=== PATIENT | male | born 1945 | race Caucasian/White ===

== ENCOUNTER 2018-02-13 17:16 | Observation (INO) | payer MEDICARE ==
[2018-02-13] MEDS ORDERED: Nitroglycerin 2% Ointment 1 INCH/1 GM Packet ONE (17:52)
[2018-02-13 17:56] LABS: #Lymphocytes 0.7 thou/uL (1.20-3.40); #Monocytes 0.5 thou/uL (0.11-0.59); #Neutrophils 6.8 thou/uL (1.40-6.50); %Basophils 0.6 % (0.0-1.0); %Eosinophils 0.2 % (0.0-10.0); %Lymphocytes 8.3 % (21.0-51.0); %Monocytes 6.1 % (0.0-10.0); %Neutrophils 84.8 % (42.0-75.0); Hemoglobin 15.6 g/dL (14.0-18.0); Mean Corpuscular HGB CONC 33.8 g/dL (32.0-36.0); Mean Corpuscular Hemoglobin 28.3 pg (27.0-31.0); Mean Corpuscular Volume 83.6 fL (78.0-98.0); Mean Platelet Volume 8.6 fL (7.4-10.4); Platelet Count 181 thou/uL (130-400); Red Blood Cell (RBC) Count 5.52 mill/uL (4.70-6.10)
[2018-02-13 18:17] LABS: CO2 Tension 38.7 mmHg (35.0-45.0); pH, Arterial 7.42 (7.35-7.45)
[2018-02-13 18:17] LABS: ALT (SGPT) 38 U/L (8-55); AST (SGOT) 38 U/L (5-34); Albumin 4.4 g/dL (3.4-4.8); Alkaline Phosphatase 69 U/L (40-150); Anion Gap 15 mmol/L (10-20); BUN (Urea Nitrogen) 23 mg/dL (8.4-25.7); Bilirubin, Total 0.6 mg/dL (0.2-1.2); CK (CPK) 102 U/L (30-200); Calc. Creatinine Clearance 0 mL/min (70-130); Calcium 9.5 mg/dL (7.8-10.44); Carbon Dioxide 26 mmol/L (23-31); Chloride 102 mmol/L (98-107); Estimated GFR-MDRD 54; Globulin 3.4 g/dL (2.4-3.5); Glucose 191 mg/dL (83-110); Lipase 23 U/L (8-78); Potassium 4.6 mmol/L (3.5-5.1); Protein, Total 7.8 g/dL (5.8-8.1); Sodium 138 mmol/L (136-145)
[2018-02-13 18:18] LABS: Actual Bicarbonate (HCO3a) 24.4 mEq/L (22-28); Base Excess (BEa) 0.1 mEq/L (-2.0 to +3.0); Hematocrit-ABG 47.6 % (42.0-52.0); Hemoglobin (Hb) 14.7 g/dL (14.0-18.0); O2 Tension (PaO2) 69.9 mmHg (> 70.0)
[2018-02-13 18:19] LABS: ALV-art Gradient 79.965 (0-20); Analyzer IN Cardio ER; Calcium, Ionized 1.2 mmol/L (1.12-1.30); Puncture Site LBA
[2018-02-13 18:21] LABS: CKMB 1.1 ng/mL (0-6.6); Troponin I 0.015 ng/mL (< 0.028)
--- NOTE | 2018-02-13 18:32 | RAD ---
PORTABLE CHEST: 02/13/18 INDICATIONS: Dyspnea. Comparison made to a prior exam from 2008. 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 There appears to be right bas ilar atelectasis. The left lung is clear. heart and mediastinum unremarkable. 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 No acute process identified. POS: [facility]
[2018-02-13] MEDS ORDERED: Enoxaparin Sodium 40 MG/0.4 ML SYRINGE ONE (18:58)
[2018-02-13] MEDS ORDERED: Enoxaparin Sodium 100 MG/ML SYRINGE ONE (18:58)
[2018-02-13 19:44] LABS: Bilirubin Negative (Negative); Blood, Urine Negative (Negative); Clarity CLEAR (Clear); Glucose, Urine (Dipstick) 500 mg/dL (Negative); Leukocyte Negative (Negative); Nitrite Negative (Negative); Protein, Urine (Dipstick) Negative (Neg-Trace); Specific Gravity, Urine 1.026 (1.002-1.036); pH, Urine 6.5 (5.0-9.0)
[2018-02-13] MEDS ORDERED: Ondansetron ODT 4 MG TAB SL PRN (20:27)
[2018-02-13] MEDS ORDERED: Sodium Chloride 0.9% 1,000 ML IV SCH (20:27)
[2018-02-13] MEDS ORDERED: Ondansetron HCl/PF 4 MG/2 ML Vial IVP PRN (20:27)
[2018-02-13 20:35] VITALS: BMI 36.6
[2018-02-13] MEDS ORDERED: Aspirin 325 MG TAB PO SCH (21:00)
[2018-02-13] MEDS ORDERED: Atorvastatin Calcium 10 MG TAB PO SCH (22:15)
[2018-02-13] MEDS: traMADol HCl 50 MG TAB PO PRN (22:18)
[2018-02-13] MEDS: Sodium Chloride 0.9% 1,000 ML IV SCH (22:24)
[2018-02-14 00:11] LABS: Troponin I Less than 0.010 ng/mL (< 0.028)
[2018-02-14] MEDS ORDERED: Diclofenac Sodium 25 mg Tablet PO SCH ×2 (08:00→20:45)
--- NOTE | 2018-02-14 08:58 | HP ---
ADMITTING PHYSICIAN: Ambrosio Mandujano M.D. HISTORY OF PRESENT ILLNESS: The patient is a 72-year-old male. 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 He reports over the last 3-4 days he is having some worsening shortness of breath. He also had some left-sided chest pain. He states that he was at a 13 of February event at his worship. He noted worsening shortness of breath, difficulty breathing. He noted pain t o his left shoulder. No nausea, vomiting, diarrhea, no productive coughing, no fever. It became inc reasingly further shortness of breath, reported to the emergency room where he was seen and evaluated . He was found to be somewhat hypoxic with O2 sat of 89%. He was given supplemental oxygen. He was seen and evaluated in the emergency room. It is noted he had a previous history of a cardiac workup by Dr. Elizalde one year ago with chemical stress test for preoperative evaluation for knee surgery . Otherwise, no other medical complaints. Right now reports he is resting comfortably. He has no hist ory of leg pain. No history of deep vein thrombosis or previous pulmonary emboli. As a matter of fa ct, he does have a previous history of a head injury causing intracranial bleed approximately 3 years ago. No further treatment was noted other than close observation. At this time he currently report s he is feeling well, but he is taking supplemental oxygen. ALLERGIES: He is possibly allergic to IODINE. He has had a cardiac catheterization in the past but was premedicated. CURRENT MEDICATIONS: Pravastatin 40 mg daily, Nexium 40 mg daily, aspirin 81 mg daily, tramadol as n eeded for pain, Zyrtec 10 mg daily. PAST MEDICAL HISTORY: Positive for paralysis of right hemidiaphragm, hypertension. PAST SURGICAL HISTORY: Positive for surgery on the left wrist, right total knee replacement approxim ately 1 year ago. SOCIAL/PERSONAL HISTORY: He lives at home with his . He drinks socially, does not smoke. REVIEW OF SYSTEMS: GASTROINTESTINAL: Negative. GENITOURINARY: Negative. CARDIOVASCULAR: Otherwise, negative. PHYSICAL EXAMINATION: VITAL SIGNS: BP 118/55, temperature 98.8, respirations 18, O2 sats 99% on 2 liters, pulse 66 and reg ular. HEENT: Normocephalic, atraumatic. Extraocular muscles intact. Sclerae and conjunctivae are clear. Throat clear. NECK: Supple, full range of motion, no masses. LUNGS: Reveal bilateral breath sounds, somewhat diminished on the right side. HEART: Regular rate and rhythm without murmurs, gallops or rubs. EXTREMITIES: No clubbing, edema or cyanosis noted at this time. ABDOMEN: Soft, nontender, bowel sounds present and active. LABORATORY: Hemoglobin 15.6, hematocrit 46.2. WBC is 8.0. D-dimer is elevated slightly at 1.05. B lood gases show a pO2 of 69%, pO2 of 38.7. Chemistry is otherwise unremarkable. Troponins are negat sean x3. EKG reveals sinus rhythm without acute changes. Chest x-ray does reveal no evidence of acute findings. IMPRESSION: Elevated D-dimer in association with shortness of breath with association of left-sided chest pain, suspicious for possible embolism. PLAN: 1. We will go ahead and schedule VQ scan as well as venous Doppler studies of extremities. 2. We will consult Pulmonary for further recommendations of evaluation and treatment. For the time being, he will remain on Lovenox until further treatment recommendations are made.
[2018-02-14] MEDS ORDERED: Enoxaparin Sodium 40 MG/0.4 ML SYRINGE SC SCH (09:00)
[2018-02-14] MEDS: Cetirizine HCl 10 MG TAB PO SCH (09:23)
--- NOTE | 2018-02-14 10:18 | ULT ---
VENOUS DUPLEX SONOGRAM BILATERAL LOWER EXTREMITIES: History: Dyspnea, bilateral leg pain and edema. FINDINGS: Each common femoral vein and greater saphenous junction are evaluated along with each femoral, deep f emoral, popliteal, and posterior tibial vein. There is good color and spectral doppler flow, compress ion, and augmentation. IMPRESSION: No sonographic evidence of DVT within either lower extremity. POS: CATHLEEN
[2018-02-14] MEDS ORDERED: ALPRAZolam 0.5 MG TAB PO SCH (10:45)
--- NOTE | 2018-02-14 11:07 | CT ---
CT HEAD NONCONTRAST: HISTORY: Altered mental status. Vertigo. COMPARISON: 09/17/2015 FINDINGS: There is no evidence of acute intracranial hemorrhage or infarct. Mild diffuse cortical atrophy is s table. No mass effect or shift of midline structures. The ventricles appear normal in size, shape, and position. The mastoid air cells and visualized paranasal sinuses remain well aerated. IMPRESSION: No acute intracranial abnormalities are demonstrated on noncontrast CT head. POS: CATHLEEN
--- NOTE | 2018-02-14 11:23 | CON ---
DATE OF CONSULTATION: 02/14/2018 HISTORY: This is a 72-year-old morbidly obese gentleman, 277 pounds, 6 feet 1, BMI 36, who presents with several complaints, headache for 6 days, shortness of breath, vague chest pain for several days. In the ER, his D-dimer was elevated at 1.05, less than 0.43 is normal, though he has got azotemia. Creatinine is 1.30. He has never smoked, apparently. 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 He denied any coughing or wheezing. Denies any chest pain, previous history of pneumonia, but no TB or asthma. PAST MEDICAL HISTORY: Pertinent for otherwise in 2015 history of closed head injury with nondisplace d skull fracture, subdural blood. He was sent home on pain medication. Otherwise his past medical h istory is pertinent for hypertension. PAST SURGICAL HISTORY: Right total knee. ALLERGIES: IODINE. HOME MEDICATIONS: A list of medicines from home includes tramadol 50, Nexium 40, Zyrtec 10, aspirin, pravastatin 40. 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 REVIEW OF SYSTEMS: Otherwise, 10-point negative. PHYSICAL EXAMINATION: VITAL SIGNS: Sats are 96 on 3 liters, respiration rate 18, pulse 66, temperature is 98, blood pressu re 131/73. CHEST: Chest reveals decreased breath sounds, no wheezing. CARDIAC: Normal S1-S2. No gallops. ABDOMEN: Soft. No masses. LABORATORY: White count 8000, H&H 15 and 43, platelet count is normal. His pO2 was 69, pCO2 37.42 o n 2 liters, creatinine 1.3. Electrolytes are normal. D-dimer is slightly elevated. Troponin is nor mal. Urine is normal. Venogram was done which was negative. Chest x-ray shows no acute infiltrates except for the elevated hemidiaphragm. IMPRESSION: 1. Dyspnea. 2. Elevated D-dimer, possibly pulmonary embolus. 3. Morbid obesity. Apparently had a sleep study in the past, noncompliant with CPAP. 4. Renal failure. 5. Arthritis. PLAN: A VQ scan has been ordered. Full pulmonary function tests. I added inhaled bronchodilator therapy. Echo is being ordered to assess his cardiac function. I will follow and make a decision once I look at the VQ scan. This is a consultation note, 70 minutes, 50% spent in direct patient care.
--- NOTE | 2018-02-14 15:53 | NM ---
RADIONUCLIDE VENTILATION PERFUSION LUNG SCAN: 02/14/18 HISTORY: Elevated D-dimer. Dyspnea. FINDINGS: Ventilation images show good uptake of tracer throughout each lung on the initial images. Elevation o f the right hemidiaphragm correlates with recent radiography. Perfusion images show good perfusion gr adient. No segmental or subsegmental perfusion mismatches are apparent. IMPRESSION: Exam is now probability for clinically significant pulmonary embolus. POS: [facility]
[2018-02-14] MEDS: Sodium Chloride 0.9% 1,000 ML IV SCH (16:21)
[2018-02-14] MEDS: Mometasone/Formoterol 120 PUFF INHALER INH SCH (19:37)
[2018-02-14] MEDS: traMADol HCl 50 MG TAB PO PRN (20:12)
[2018-02-14] MEDS ORDERED: Atorvastatin Calcium 10 MG TAB PO SCH (21:00)
[2018-02-15] MEDS: Mometasone/Formoterol 120 PUFF INHALER INH SCH (06:23)
[2018-02-15] MEDS ORDERED: Diclofenac Sodium 25 mg Tablet PO SCH (08:00)
[2018-02-15] MEDS: Cetirizine HCl 10 MG TAB PO SCH (08:32)
[2018-02-15] MEDS: traMADol HCl 50 MG TAB PO PRN (08:39)
[2018-02-15] MEDS ORDERED: Enoxaparin Sodium 40 MG/0.4 ML SYRINGE SC SCH (09:00)
--- NOTE | 2018-02-15 09:40 | PRG ---
DATE OF SERVICE: 02/15/2018 OBJECTIVE: VITAL SIGNS: Sats are 100% on room air, respiration 17, temperature 98, blood pressure 140/65. CHEST: Decreased breath sounds without any wheezing. CARDIAC: Normal S1, S2, no gallops. ABDOMEN: Soft, no masses. IMPRESSION: 1. Chest pain, dyspnea, no evidence of pulmonary emboli. 2. Morbid obesity, elevated hemidiaphragm, bronchitis. PLAN: Outpatient PFTs. Discharged home on Dulera. Await results of the echo.
[2018-02-15 11:28] VITALS: TEMP 98.1
[2018-02-15 12:46] VITALS: BP 152/72
--- NOTE | 2018-02-15 13:08 | PRG ---
DATE OF SERVICE: 02/15/2018 HISTORY OF PRESENT ILLNESS: The patient is feeling a little better today. He is still having some e pisodes of dizziness that are fairly episodic and random. He notes no headache, nausea, vomiting, di arrhea. No slurred speech, difficulty speaking, talking or swallowing. The patient underwent VQ sca n yesterday which was normal, he also underwent venogram which was normal. Brain CT scan which was a lso normal. Otherwise, no other medical complaints are noted. PHYSICAL EXAMINATION: VITAL SIGNS: Blood pressure is 152/72, pulse 56. GENERAL: Alert, active, in no distress. LUNGS: Clear. HEART: Reveals no murmur. EXTREMITIES: No clubbing, edema or cyanosis. IMPRESSION: 1. Shortness of breath of unknown etiology, possibly related to his previous paralyzed diaphragm on the right side. 2. Elevated D-dimer of unknown etiology. 3. Dizziness, possibly could represent inner ear process, could represent also some quality of heat exhaustion although this has not been documented previously. 4. Dyspnea. PLAN: The patient is able to be discharged home. He will be discharged home on Dulera 2 puffs b.i.d . as well as meclizine 25 mg q.8h. as needed for dizziness. He will be seen in followup with me in 2 weeks. He may continue his home medications. He also will follow up with Dr. Sanchez in 7-10 days for pulmonary function testing.
== END 2018-02-15 13:41 | disposition home or self-care (01) ==
LOC: ERS 17:16 → 2SW 20:29
PROVIDERS: ADMIT Family Medicine; ATTEND Family Medicine
DX: R06.02 Shortness of breath (principal); R07.9 Chest pain, unspecified; R79.1 Abnormal coagulation profile; I10 Essential (primary) hypertension; M19.90 Unspecified osteoarthritis, unspecified site; R42 Dizziness and giddiness; J98.6 Disorders of diaphragm; E66.01 Morbid (severe) obesity due to excess calories; Z68.36 Body mass index [BMI] 36.0-36.9, adult; Z79.82 Long term (current) use of aspirin; Z79.1 Long term (current) use of non-steroidal anti-inflammatories (NSAID); Z79.899 Other long term (current) drug therapy; Z91.041 Radiographic dye allergy status
CPT/HCPCS: 70450; 71045; 78582; 80053; 81003; 82550; 82553; 82805; 83605; 83690; 83880; 84484 ×2; 85025; 85379; 93005; 93306; 93970; 94640 ×2; 94760; 96360; 96361 ×2; 96372 ×2; 99285; A9540; A9558; G0378; 36415; J1650

== ENCOUNTER 2020-10-09 10:18 | Emergency (ER) | payer MEDICARE ==
--- NOTE | 2020-10-09 12:26 | RAD ---
Exam: XR Foot Rt 3 View STANDARD HISTORY: Nonhealing wound between toes of right foot. COMPARISON: None FINDINGS: No fracture or dislocation is seen. There are lucencies seen involving the medial and lateral cuneifo rm bones as well as bases of the second through fourth metatarsals with joint space narrowing present. These findings are thought to be related to advanced degenerative changes at these levels. N o definite osseous destruction is appreciated. Tiny calcification is seen adjacent to the base of the proximal phalanx great toe. Plantar and posterior calcaneal enthesophytes are identified. IMPRESSION: Degenerative changes involving the tarsal metatarsal joints, but no definite acute osseous abnormalit y is seen. If there is concern for osteomyelitis, MRI right foot before and after the administration of intravenous contrast is recommended for further evaluation.
== END 2020-10-09 13:31 | disposition home or self-care (01) ==
LOC: ERS 10:18
DX: S91.331A Puncture wound without foreign body, right foot, initial encounter (principal); S91.134A Puncture wound without foreign body of right lesser toe(s) without damage to nail, initial encounter; E11.9 Type 2 diabetes mellitus without complications; I10 Essential (primary) hypertension
CPT/HCPCS: 93005

== ENCOUNTER 2024-02-04 15:53 | Outpatient (CLI) | payer MEDICARE | END 2024-02-04 15:54 | disposition home or self-care (01) | LOC: SCSRAD 15:53 | PROVIDERS: ATTEND Family Medicine | DX: R07.9 Chest pain, unspecified (principal) | CPT/HCPCS: 71046 ==

== ENCOUNTER 2024-05-15 06:13 | Observation (INO) | payer MEDICARE ==
[2024-05-12 09:14] VITALS: BMI 34.8
[2024-05-15] MEDS ORDERED: Vancomycin 1 GM VIAL ONE (06:23)
[2024-05-15] MEDS ORDERED: Thrombin 5000 UNITS/5 ML VIAL ONE (06:24)
[2024-05-15] MEDS ORDERED: fentaNYL PF 100 MCG/2 ML SYRINGE ONE ×2 (06:53→09:12)
[2024-05-15] MEDS ORDERED: PROPOFOL 20 ML ONE (06:53)
[2024-05-15] MEDS ORDERED: Rocuronium Bromide 10 MG/ML (10ML VIAL) ONE (06:57)
[2024-05-15] MEDS ORDERED: Lidocaine 1% PF 5 ML VIAL ONE (06:57)
[2024-05-15] MEDS ORDERED: CEFAZOLIN 2 GM VIAL ONE ×2 (07:06→15:32)
[2024-05-15] MEDS ORDERED: Sodium Chloride 0.9% 100 ML ONE ×3 (07:06→15:32)
[2024-05-15] MEDS ORDERED: Dexmedetomidine 200 MCG/2 ML VIAL ONE (08:16)
[2024-05-15] MEDS ORDERED: Ondansetron PF 4 MG/2 ML Vial ONE ×2 (08:16→11:20)
[2024-05-15] MEDS ORDERED: Dexamethasone 20 MG/5 ML VIAL ONE (08:16)
[2024-05-15] MEDS ORDERED: hydrALAZINE 20 MG/ML VIAL ONE (10:11)
[2024-05-15] MEDS ORDERED: Ondansetron HCl/PF 4 MG/2 ML Vial IVP PRN (10:20)
[2024-05-15] MEDS ORDERED: Promethazine HCl 25 MG/ML VIAL IM PRN (10:20)
[2024-05-15] MEDS ORDERED: Glycopyrrolate 0.2 MG/ML 5 ML SYRINGE ONE (10:25)
[2024-05-15] MEDS ORDERED: NEOSTIGMINE 3 MG/3 ML SYRINGE ONE (10:25)
[2024-05-15] MEDS ORDERED: Ondansetron PF 4 MG/2 ML Vial IVP PRN (10:40)
[2024-05-15] MEDS ORDERED: Morphine 2 MG/ML VIAL SLOW IVP PRN (10:40)
[2024-05-15] MEDS ORDERED: Milk Of Magnesia 30 ML UDCUP PO PRN (10:40)
[2024-05-15] MEDS ORDERED: Acetaminophen/Codeine 30-300mg Tablet PO PRN (10:40)
[2024-05-15] MEDS ORDERED: HYDROcodone/Acetaminophen 7.5/325 mg Tablet PO PRN (10:40)
[2024-05-15] MEDS ORDERED: Mag-Al 1200 mg/1200 mg/30 ML UDCUP PO PRN (10:40)
[2024-05-15] MEDS ORDERED: diphenhydrAMINE 25 MG CAP PO PRN (10:40)
[2024-05-15] MEDS ORDERED: tiZANidine HCl 4 MG TAB PO PRN (10:43)
[2024-05-15] MEDS ORDERED: Benzocaine/Menthol 1 LOZ LOZ PO PRN (10:43)
[2024-05-15] MEDS ORDERED: hydrALAZINE 20 MG/ML VIAL SLOW IVP PRN (10:43)
[2024-05-15] MEDS ORDERED: Diazepam 5 MG TAB PO PRN (10:43)
[2024-05-15] MEDS ORDERED: fentaNYL 50 mcg/mL 1 mL Vial ONE ×3 (10:55→14:43)
[2024-05-15] MEDS ORDERED: traMADol HCl 50 MG TAB ONE (15:32)
[2024-05-15] MEDS ORDERED: Promethazine HCl 25 MG/ML VIAL ONE (15:38)
[2024-05-15] MEDS: traMADol HCl 50 MG TAB PO PRN (15:48)
[2024-05-15] MEDS: CEFAZOLIN 2 GM in Sodium Chloride 0.9% 100 ML IVPB SCH (15:50)
[2024-05-15] MEDS: Sodium Chloride 0.9% 1,000 ML IV SCH (18:15)
[2024-05-15] MEDS: Atorvastatin Calcium 10 MG TAB PO SCH (20:55)
[2024-05-15] MEDS: Montelukast Sodium 10 mg Tablet PO SCH (20:55)
[2024-05-15] MEDS: Pantoprazole DR 40 MG TAB PO SCH (20:56)
[2024-05-15] MEDS: Acetaminophen 325 MG TAB PO PRN (20:57)
[2024-05-16 03:31] VITALS: TEMP 98.3
[2024-05-16 08:18] VITALS: BP 133/74
== END 2024-05-16 11:47 | disposition home or self-care (01) ==
LOC: SDC 06:13 → MSONC 10:40
PROVIDERS: ADMIT Surgery; ATTEND Surgery
PROC: 01NB3ZZ Release Lumbar Nerve, Percutaneous Approach (ICD-10-PCS; principal; 2024-05-15)
DX: M48.061 Spinal stenosis, lumbar region without neurogenic claudication (principal); M54.16 Radiculopathy, lumbar region; Z88.5 Allergy status to narcotic agent; Z79.899 Other long term (current) drug therapy
CPT/HCPCS: 63047; 63048 ×3; J0360; J1100; J2405; J2550; J2704; J3010; J3370; J7030